=== PATIENT | female | born 1985 | race Caucasian/White ===

== ENCOUNTER 2018-05-19 12:52 | Emergency (ER) | payer MEDICAID ==
[~2018-05-19] VITALS: Ht 152.4 cm; Wt 66.7 kg
[2018-05-19 12:58] VITALS: Ht 152.4 cm; Wt 66.7 kg
[2018-05-19 14:45] LABS: CALCIUM 9.4 mg/dL (8.5-10.1); CARBON DIOXIDE 21.9 mmol/L (21-32); CHLORIDE SERUM 103 mmol/L (98-107); CREATININE SERUM 0.6 mg/dL (0.6-1.0); GFR1 > 60 mL/min; GLUCOSE SERUM 91 mg/dL (74-106); POTASSIUM SERUM 3.6 mmol/L (3.5-5.1); SODIUM SERUM 138 mmol/L (136-145)
[2018-05-19 14:46] LABS: MAGNESIUM 2.1 mg/dL (1.8-2.4)
[2018-05-19 15:27] VITALS: BP 109/80
== END 2018-05-19 15:39 | disposition home or self-care (01) ==
LOC: ED 12:52
PROVIDERS: Emergency Medicine
DX: R51 Headache (principal); R56.9 Unspecified convulsions; Z85.71 Personal history of Hodgkin lymphoma; Z98.890 Other specified postprocedural states; Z88.8 Allergy status to other drugs, medicaments and biological substances
CPT/HCPCS: J1200; J1885; J2270

== ENCOUNTER 2018-07-06 08:43 | Emergency (ER) | payer MEDICAID ==
[~2018-07-06] VITALS: Ht 152.4 cm; Wt 65.8 kg
[2018-07-06 08:49] VITALS: Ht 152.4 cm; Wt 65.8 kg
[2018-07-06 10:00] VITALS: BP 131/97
== END 2018-07-06 10:00 | disposition home or self-care (01) ==
LOC: ED 08:43
DX: R51 Headache (principal); Z88.8 Allergy status to other drugs, medicaments and biological substances
CPT/HCPCS: J1200